=== PATIENT | male | born 1965 | race Caucasian/White ===

== ENCOUNTER 2024-03-23 13:54 | Observation (INO) ==
--- NOTE | 2024-03-23 14:28 | Emergency Department Note ---
Impression & Plan Sepsis, Cellulitis ED Provider Note NAME: NANCY RODRIGUEZ AGE: 58 SEX: M : 1965 ARRIVES VIA: Walk-In INFORMANT: Patient, ED PROVIDER(S): Douglas Houser MD CHIEF COMPLAINT: Fever MEDICAL DECISION MAKING: Patient presents due to concern for fever in the setting of recent scrotal cellulitis. The patient does have some redness there today no evidence of crepitus or mass or fluctuance. IV was established and blood work was obtained along with a blood culture and lactate. IV Ofirmev was ordered in addition to IV fluids. Patient was treated with empiric Zosyn. CT abdomen pelvis performed. Blood work shows a normal white count H&H and platelet count. The patient's kidney function is unremarkable. Patient's blood sugar is 230. LFTs unremarkable procalcitonin is not elevated. Urinalysis shows ketones trace blood but no signs of obvious infection. Bio fire is negative. Chest x-ray negative. CT abdomen pelvis does show possible cellulitis to the left groin. Patient does not have any obvious redness to the left groin. Patient did report that he did have some redness to the right upper extremity where he had a recent peripheral IV. There is some blanching redness there. This could also be a possible site of cellulitic change. Upon assessment the patient looks generally unwell and the blood the patient would benefit from staying in hospital. I did speak the on-call hospitalist Dr. Kang and the patient was admitted to the medicine service. Discussion w/ other healthcare providers: None Prior /Outside records reviewed: None Differential diagnosis: Viral syndrome, otitis, pharyngitis, pneumonia, influenza, meningitis, urinary tract infection, sepsis, bacteremia, as well as other pathologies. Diagnostics, as interpreted by me: ECG: Sinus tachycardia, rate of 107, normal intervals, normal axis no ST elevations. No prior EKGs for comparison. Cardiac monitoring: An order was placed for continuous cardiac monitoring. The monitor shows a rate of 102 with tachycardic and regular rhythm. Patient was placed on pulse oximetry Medical decision rules: None Imaging studies: I informally interpreted the patient's chest x-ray does not show obvious pneumonia or pneumothoraxwith formal report to follow. HPI: Patient presents due to concern for feeling as though he was very hot. Patient did take his temperature and the car was notable to be 102. The patient did take some ibuprofen. The patient does believe that his temperature has improved. The patient has had some left-sided chest tightness. He reports that he had a calcium score of 03 years ago. No reported prior history of heart or lung disease. Non-smoker. Patient denies any exertional symptoms and the patient's chest tightness is left-sided nonradiating. No falls or trauma. The patient did have recent admission and discharge from [facility] for scrotal cellulitis. The patient is currently on Bactrim. Patient denies any leg swelling or calf pain. The patient does not have any pleuritic pain. Patient states that he was discharged yesterday from hospital was feeling quite well and that they were on their way to [place] to visit their daughter. PAST MEDICAL HISTORY: Diabetes, fatty liver PAST SURGICAL HISTORY: Rotator cuff surgery, cholecystectomy SOCIAL HISTORY: Denies alcohol tobacco or drug use. Lives in [place]. HOME MEDICATIONS: See Below ALLERGIES: See Below VITALS: See Below PHYSICAL EXAMINATION: GENERAL: Mildly ill but nontoxic in appearance and in no apparent distress. EYE EXAM: Normal conjunctiva. PERRL, no anisocoria and EOM's grossly intact w/o pain. OROPHARYNX: Moist mucus membranes, grossly normal dentition. NECK: Trachea midline, no stridor. LUNGS: Clear to auscultation. Normal chest wall mechanics. HEART: Tachycardic and regular, no MRG. ABDOMEN: Abdomen soft, non-tender, no masses, no rebound or guarding. BACK: No CVA TTP. SKIN: No rashes and no bruising. : Circumcised, bilateral testes descended, mild redness to the scrotum but no fluctuance or drainage,, no crepitus. No pain to the perineum no fluctuance or drainage. UPPER EXTREMITIES: Blanching erythema to the volar aspect of the proximal right forearm, no fluctuance or drainage. LOWER EXTREMITIES: Grossly normal, no edema. NEURO EXAM: A&O x3, cranial nerves II-XII grossly intact, normal speech, moves all 4 extremities. Past Med/Surg History Problem List (Updated 03/23/24 @ 19:50 by Douglas Houser MD) Cellulitis (Acute) History of cholecystectomy Morbid obesity HTN (hypertension) Septic phlebitis of upper extremities DM type 2 (diabetes mellitus, type 2) Sepsis (Acute) Social History Smoking Status: Never smoker Preferred Language: Japanese Feels Safe at Home: Yes Allergies Allergies Allergy/AdvReac Type Severity Reaction Status Date / Time amoxicillin [From Augmentin] AdvReac Intermediate Vomiting Verified 03/23/24 16:50 clavulanic acid AdvReac Intermediate Vomiting Verified 03/23/24 16:50 [From Augmentin] Home Meds Home Medications Medication Instructions Recorded Confirmed Cinnulane(Cinnamon) 1 dose PO DAILY 03/23/24 03/23/24 alpha lipoic acid 100 mg capsule 0 mg PO DAILY 03/23/24 03/23/24 amlodipine 5 mg tablet 5 mg PO DAILY 03/23/24 03/23/24 garlic 1,000 mg capsule 1,000 mg PO DAILY 03/23/24 03/23/24 insulin aspart U-100 100 unit/mL 10 unit subcut ACHS 03/23/24 03/23/24 (3 mL) subcutaneous pen (Novolog FlexPen U-100 Insulin aspart) insulin glargine 100 unit/mL (3 30 unit subcut QPM 03/23/24 03/23/24 mL) subcutaneous pen (Lantus Solostar U-100 Insulin) inulin-sorbitol 2 gram chewable 2 tab PO TIDM 03/23/24 03/23/24 tablet multivitamin 1 tab PO DAILY 03/23/24 03/23/24 ramipril 10 mg capsule 10 mg PO DAILY 03/23/24 03/23/24 sulfamethoxazole 800 1 tab PO BID 03/23/24 03/23/24 mg-trimethoprim 160 mg tablet Results & Data (ED) Vital Signs Vital Signs - 24 hr 03/23/24 14:23 03/23/24 14:34 03/23/24 14:43 Temperature 37.2 C 37.8 C H Temperature Source Oral Oral Pulse Rate 109 H 105 H Pulse Rate [Apical] 105 H Pulse Rate from SpO2 Sensor Respiratory Rate 20 16 Respiratory Effort / Characteristics Non-Labored Spontaneous Non-Labored Spontaneous Respiratory Depth Normal Normal Respiratory Pattern Blood Pressure 175/95 H Blood Pressure [Right Arm] 159/101 H Blood Pressure Mean 121 Blood Pressure Mean [Right Arm] 120 Blood Pressure Position [Right Arm] Semi-fowlers Pulse Oximetry 94 96 Oxygen Delivery Method Room Air Room Air Oxygen Flow Rate Sepsis Recent Fever Within 48 Hours Yes Sepsis New/Unexplained Change in Mental Status N/A Sepsis Action Taken by Nursing No Action Required Oxygen Flow Rate - Titration Pulse Oximetry Post Tiitration 03/23/24 14:45 03/23/24 14:54 03/23/24 15:15 Temperature Temperature Source Pulse Rate 107 H 106 H 107 H Pulse Rate [Apical] Pulse Rate from SpO2 Sensor 107 H 117 H Respiratory Rate 23 16 Respiratory Effort / Characteristics Respiratory Depth Respiratory Pattern Blood Pressure 134/96 Blood Pressure [Right Arm] Blood Pressure Mean 103 Blood Pressure Mean [Right Arm] Blood Pressure Position [Right Arm] Pulse Oximetry 95 95 95 Oxygen Delivery Method Room Air Room Air Oxygen Flow Rate Sepsis Recent Fever Within 48 Hours Sepsis New/Unexplained Change in Mental Status Sepsis Action Taken by Nursing Oxygen Flow Rate - Titration Pulse Oximetry Post Tiitration 03/23/24 15:32 03/23/24 15:47 03/23/24 15:51 Temperature Temperature Source Pulse Rate Pulse Rate [Apical] 100 H 109 H Pulse Rate from SpO2 Sensor Respiratory Rate 20 14 Respiratory Effort / Characteristics Non-Labored Spontaneous Respiratory Depth Normal Respiratory Pattern Regular Blood Pressure 141/88 H Blood Pressure [Right Arm] 153/93 H 141/88 H Blood Pressure Mean 105 Blood Pressure Mean [Right Arm] 113 105 Blood Pressure Position [Right Arm] Semi-fowlers Pulse Oximetry 95 94 Oxygen Delivery Method Room Air Room Air Oxygen Flow Rate Sepsis Recent Fever Within 48 Hours Sepsis New/Unexplained Change in Mental Status Sepsis Action Taken by Nursing Oxygen Flow Rate - Titration Pulse Oximetry Post Tiitration 03/23/24 15:51 03/23/24 16:00 03/23/24 16:00 Temperature Temperature Source Pulse Rate 107 H Pulse Rate [Apical] Pulse Rate from SpO2 Sensor 107 H Respiratory Rate 13 Respiratory Effort / Characteristics Spontaneous Respiratory Depth Normal Respiratory Pattern Regular Blood Pressure 141/88 H 149/90 H Blood Pressure [Right Arm] Blood Pressure Mean 105 115 Blood Pressure Mean [Right Arm] Blood Pressure Position [Right Arm] Pulse Oximetry 94 Oxygen Delivery Method Room Air Oxygen Flow Rate Sepsis Recent Fever Within 48 Hours Sepsis New/Unexplained Change in Mental Status Sepsis Action Taken by Nursing Oxygen Flow Rate - Titration Pulse Oximetry Post Tiitration 03/23/24 16:15 03/23/24 16:16 03/23/24 16:30 Temperature Temperature Source Pulse Rate 109 H 110 H Pulse Rate [Apical] Pulse Rate from SpO2 Sensor 109 H 109 H Respiratory Rate 21 Respiratory Effort / Characteristics Non-Labored Spontaneous Respiratory Depth Normal Respiratory Pattern Regular Blood Pressure 145/90 H 159/88 H Blood Pressure [Right Arm] Blood Pressure Mean 108 116 Blood Pressure Mean [Right Arm] Blood Pressure Position [Right Arm] Pulse Oximetry 94 94 Oxygen Delivery Method Room Air Room Air Oxygen Flow Rate Sepsis Recent Fever Within 48 Hours Sepsis New/Unexplained Change in Mental Status Sepsis Action Taken by Nursing Oxygen Flow Rate - Titration Pulse Oximetry Post Tiitration 03/23/24 16:42 03/23/24 16:45 03/23/24 16:45 Temperature 37.3 C Temperature Source Oral Pulse Rate 117 H Pulse Rate [Apical] 96 H Pulse Rate from SpO2 Sensor 106 H Respiratory Rate 20 21 Respiratory Effort / Characteristics Non-Labored Respiratory Depth Normal Respiratory Pattern Blood Pressure 154/73 H 154/73 H Blood Pressure [Right Arm] 159/88 H Blood Pressure Mean 100 100 Blood Pressure Mean [Right Arm] 111 Blood Pressure Position [Right Arm] Pulse Oximetry 92 91 Oxygen Delivery Method Room Air Room Air Oxygen Flow Rate Sepsis Recent Fever Within 48 Hours Sepsis New/Unexplained Change in Mental Status Sepsis Action Taken by Nursing Oxygen Flow Rate - Titration Pulse Oximetry Post Tiitration 03/23/24 17:07 03/23/24 17:07 03/23/24 17:08 Temperature Temperature Source Pulse Rate 114 H Pulse Rate [Apical] 109 H Pulse Rate from SpO2 Sensor 112 H Respiratory Rate 23 19 Respiratory Effort / Characteristics Non-Labored Spontaneous Respiratory Depth Normal Respiratory Pattern Regular Blood Pressure 125/77 125/77 Blood Pressure [Right Arm] 125/77 Blood Pressure Mean 81 81 Blood Pressure Mean [Right Arm] 93 Blood Pressure Position [Right Arm] Semi-fowlers Pulse Oximetry 90 91 Oxygen Delivery Method Room Air Oxygen Flow Rate Sepsis Recent Fever Within 48 Hours Sepsis New/Unexplained Change in Mental Status Sepsis Action Taken by Nursing Oxygen Flow Rate - Titration Pulse Oximetry Post Tiitration 03/23/24 17:15 03/23/24 17:45 03/23/24 17:58 Temperature Temperature Source Pulse Rate 106 H 102 H Pulse Rate [Apical] Pulse Rate from SpO2 Sensor 108 H Respiratory Rate 14 30 H Respiratory Effort / Characteristics Respiratory Depth Respiratory Pattern Blood Pressure 152/79 H 123/69 Blood Pressure [Right Arm] Blood Pressure Mean 88 87 Blood Pressure Mean [Right Arm] Blood Pressure Position [Right Arm] Pulse Oximetry 93 89 L Oxygen Delivery Method Room Air Nasal Cannula Oxygen Flow Rate 0 Sepsis Recent Fever Within 48 Hours Sepsis New/Unexplained Change in Mental Status Sepsis Action Taken by Nursing Oxygen Flow Rate - Titration 2 Pulse Oximetry Post Tiitration 95 03/23/24 18:00 03/23/24 18:00 03/23/24 18:01 Temperature Temperature Source Pulse Rate 101 H 102 H Pulse Rate [Apical] Pulse Rate from SpO2 Sensor 101 H Respiratory Rate 23 Respiratory Effort / Characteristics Respiratory Depth Respiratory Pattern Blood Pressure 134/81 134/81 Blood Pressure [Right Arm] Blood Pressure Mean 98 89 Blood Pressure Mean [Right Arm] Blood Pressure Position [Right Arm] Pulse Oximetry 94 Oxygen Delivery Method Nasal Cannula Oxygen Flow Rate 2 Sepsis Recent Fever Within 48 Hours Sepsis New/Unexplained Change in Mental Status Sepsis Action Taken by Nursing Oxygen Flow Rate - Titration Pulse Oximetry Post Tiitration 03/23/24 18:15 03/23/24 18:15 03/23/24 18:15 Temperature Temperature Source Pulse Rate 111 H Pulse Rate [Apical] Pulse Rate from SpO2 Sensor Respiratory Rate 25 H Respiratory Effort / Characteristics Respiratory Depth Respiratory Pattern Blood Pressure 159/92 H 159/92 H Blood Pressure [Right Arm] Blood Pressure Mean 106 106 Blood Pressure Mean [Right Arm] Blood Pressure Position [Right Arm] Pulse Oximetry Oxygen Delivery Method Oxygen Flow Rate Sepsis Recent Fever Within 48 Hours Sepsis New/Unexplained Change in Mental Status Sepsis Action Taken by Nursing Oxygen Flow Rate - Titration Pulse Oximetry Post Tiitration 03/23/24 18:30 03/23/24 18:45 Temperature Temperature Source Pulse Rate 108 H 102 H Pulse Rate [Apical] Pulse Rate from SpO2 Sensor 109 H 102 H Respiratory Rate 15 20 Respiratory Effort / Characteristics Respiratory Depth Respiratory Pattern Blood Pressure 142/94 H 154/88 H Blood Pressure [Right Arm] Blood Pressure Mean 108 110 Blood Pressure Mean [Right Arm] Blood Pressure Position [Right Arm] Pulse Oximetry 92 94 Oxygen Delivery Method Nasal Cannula Nasal Cannula Oxygen Flow Rate 2 2 Sepsis Recent Fever Within 48 Hours Sepsis New/Unexplained Change in Mental Status Sepsis Action Taken by Nursing Oxygen Flow Rate - Titration Pulse Oximetry Post Tiitration Home Medications Current Medication List: was personally reviewed by me Laboratory Data Attestation: I reviewed the patient's lab results. 03/23/24 15:09 03/23/24 15:09 Lab Results 03/23/24 03/23/24 03/23/24 Range/Units 15:09 15:29 16:01 WBC 9.28 (4.8-10.8) K/ul RBC 5.48 (4.70-6.10) M/uL Hgb 16.1 (14.0-18.0) g/dl POC Hgb 16.7 (14.0-18.0) g/dl Hct 47.0 (42.0-52.0) % POC Hct 49 (42-52) % MCV 85.8 (80.0-100.0) fL MCH 29.4 (25.0-34.0) pg MCHC 34.3 (32.0-36.0) g/dL RDW Std Deviation 40.2 (36.4-46.3) fL RDW Coeff of Shaheed 12.9 (11.5-14.5) % Plt Count 212 (130-400) K/uL MPV 11.0 (9.4-12.4) fL Immature Gran % (Auto) 0.5 % Neut % (Auto) 88.4 % Lymph % (Auto) 5.0 % [place] % (Auto) 5.6 % Eos % (Auto) 0.2 % Baso % (Auto) 0.3 % Neut # (Auto) 8.20 H (1.40-6.50) K/uL Lymph # (Auto) 0.46 L (1.20-3.40) K/uL [place] # (Auto) 0.52 (0.11-0.59) K/uL Eos # (Auto) 0.02 (0.00-0.50) K/uL Baso # (Auto) 0.03 (0.00-0.20) K/uL Immature Gran # (Auto) 0.05 (0.01-0.20) K/uL POC Sodium 135 (135-144) mmol/L Sodium 133 L (136-145) mmol/L POC Potassium 4.0 (3.3-5.0) mmol/L Potassium 3.9 (3.5-5.1) mmol/L POC Chloride 98 L (101-112) mmol/L Chloride 97 L (98-107) mmol/L Carbon Dioxide 26 (21-32) mmol/L POC Total CO2 24 (24-31) mmol/L Anion Gap 10 (3-11) POC Anion Gap 17.0 (16-25) mmol/L POC BUN 12 (7-18) mg/dl BUN 13 (6-23) mg/dl Creatinine 0.95 (0.6-1.4) mg/dl POC Creatinine 1.0 (0.6-1.3) mg/dl Est Cr Clr Drug Dosing 126.4 ml/min Est GFR ( Amer) 101.9 ml/min Est GFR (Non-Af Amer) 87.9 ml/min BUN/Creatinine Ratio 13.7 (10-20) Glucose 230 H (70-99(Fasting)) mg/dl POC Glucose (other) 236 H (70-99) mg/dl Lactate 1.8 (0.4-2.0) mmol/L Calcium 9.5 (8.6-10.3) mg/dl POC Ioniz Calcium Miguel Ángel 1.07 L (1.12-1.32) mmol/l Magnesium 1.8 (1.7-2.4) mg/dl Total Bilirubin 0.7 (0.2-1.0) mg/dl Direct Bilirubin 0.2 (0-0.2) mg/dl AST 29 (13-39) U/L ALT 38 (7-52) U/L Alkaline Phosphatase 66 (34-104) U/L Troponin I High Sens 11.3 (0-20) pg/ml Total Protein 7.8 (6.0-8.3) gm/dl Albumin 4.7 (3.4-5.0) gm/dl Procalcitonin 0.22 (0-0.5) ng/ml Urine Color Yellow Urine Appearance Clear (Clear) Urine pH 5.5 (4.5-7.5) Ur Specific [place] 1.016 (1.000-1.030) Urine Protein Negative (Negative) Urine Glucose (UA) 2+ H (Negative) Urine Ketones 2+ H (Negative) Urine Blood Trace H (Negative) Urine Nitrite Negative (Negative) Urine Bilirubin Negative (Negative) Urine Urobilinogen Negative (Negative) Ur Leukocyte Esterase Negative (Negative) Urine WBC (Auto) 0-5 (0-5) /hpf Urine RBC (Auto) 0-2 (0-2) /hpf U Hyaline Cast (Auto) 0-2 (0-2) /lpf U Epithel Cells (Auto) 0-2 (0-2) /hpf Urine Bacteria (Auto) None Seen (None Seen) Adenovirus (PCR) Not Detected (NotDetected) B. pertussis DNA (PCR) Not Detected (NotDetected) B.parapertussis DNA PCR Not Detected (NotDetected) C. pneumoniae DNA (PCR) Not Detected (NotDetected) Coronavirus OC43 (PCR) Not Detected (NotDetected) Coronavirus HKU1 (PCR) Not Detected (NotDetected) Coronavirus 229E (PCR) Not Detected (NotDetected) SARS-CoV-2 (PCR) Not Detected (NotDetected) Coronavirus NL63 (PCR) Not Detected (NotDetected) Human Metapneumovir PCR Not Detected (NotDetected) Influenza Type A (PCR) Not Detected (NotDetected) Influenza Type B (PCR) Not Detected (NotDetected) M. pneumoniae (PCR) Not Detected (NotDetected) Parainfluenza 1 (PCR) Not Detected (NotDetected) Parainfluenza 2 (PCR) Not Detected (NotDetected) Parainfluenza 3 (PCR) Not Detected (NotDetected) Parainfluenza 4 (PCR) Not Detected (NotDetected) RSV (PCR) Not Detected (NotDetected) Entero/Rhino (PCR) Not Detected (NotDetected) Administered Medications Discontinued Medications Sodium Chloride (Nss) 1,000 mls @ 999 mls/hr IV .Q1H1M IZABEL Stop: 03/23/24 16:00 Last Infusion: 03/23/24 16:25 Dose: Infused Documented By: Admin: 03/23/24 15:20 Dose: 999 mls/hr Documented By: BEVERLY Piperacillin Sod/Tazobactam Sod (Zosyn) 4.5 gm in 100 mls @ 200 mls/hr IV NOW ONE Stop: 03/23/24 15:16 Last Infusion: 03/23/24 16:22 Dose: Infused Documented By: Admin: 03/23/24 15:50 Dose: 200 mls/hr Documented By: BEVERLY Acetaminophen (Ofirmev) 1,000 mg in 100 mls @ 400 mls/hr IV NOW STA Stop: 03/23/24 15:03 Last Infusion: 03/23/24 16:45 Dose: Infused Documented By: Admin: 03/23/24 16:21 Dose: 400 mls/hr Documented By: BEVERLY Sodium Chloride (Nss) 500 mls @ 999 mls/hr IV .Q31M ONE Stop: 03/23/24 17:54 Last Admin: 03/23/24 18:22 Dose: 999 mls/hr Documented By: BEVERLY Ioversol (Optiray 320 125ml) 119 ml IV ONCE ONE Stop: 03/23/24 15:44 Last Admin: 03/23/24 15:43 Dose: 119 ml Documented By: ILDA Imaging Data Radiologist's Impression: Chest X-Ray 03/23/24 14:47 XR chest 1V portable CLINICAL HISTORY: Sepsis. COMPARISON STUDY: No previous studies for comparison. FINDINGS: Lung volumes are normal. Lungs are clear. There is no pneumothorax or pleural effusion. Cardiac size is normal. Mediastinal contours are normal. There is no evidence for pulmonary edema. IMPRESSION: No acute cardiopulmonary findings. ACT 112: Negative or not required by law. Electronically signed by: Cristofer Mack M.D. 03/23/2024 3:26 PM Abdomen/Pelvis CT 03/23/24 14:48 CT OF THE ABDOMEN AND PELVIS WITH CONTRAST CLINICAL HISTORY: recent scrotal infection, sepsis COMPARISON STUDY: None. TECHNIQUE: Following IV administration of 119 mL of Optiray, axial images of the abdomen and pelvis were obtained from the lung bases to the proximal femurs. Images were reviewed in the axial, sagittal, and coronal planes. IV contrast was administered without complication. Automated exposure control was utilized for the study. A dose lowering technique was utilized adhering to the principles of ALARA. CT DOSE: 1845.78 mGy.cm FINDINGS: Lung bases are unremarkable. No pneumatosis, free air or portal venous gas is present. There is hepatic steatosis. There is no biliary ductal dilatation status post cholecystectomy. Spleen, adrenal glands, kidneys and pancreas are unremarkable. Is no pancreatic ductal dilatation or peripancreatic infiltration. No hydronephrosis. No urinary calculi. Nephrograms are symmetric. The appendix is normal. The caliber and wall thickness of small and large bowel are normal. There is colonic diverticulosis without evidence for acute diverticulitis. Fat-containing supraumbilical hernia is present. Major vasculature is patent. There is mild left groin stranding. No fluid collection or soft tissue gas is noted. Please note that the entire scrotum was not imaged on this examination. Mildly enlarged left external iliac and inguinal lymph nodes are present. A left external iliac lymph node on image 365 of 497 measures 2.4 x 1.3 cm. An index left inguinal lymph node on image 410 measures 2.5 x 1.1 cm. IMPRESSION: 1. Mild left groin stranding suggestive of cellulitis. No fluid collection or soft tissue gas. Please note that the entire scrotum was not imaged on this exam. 2. Mildly enlarged left external iliac and inguinal lymph nodes which are likely reactive. 3. Colonic diverticulosis. No evidence for acute diverticulitis. 4. Hepatic steatosis. ACT 112: Negative or not required by law. Electronically signed by: Cristofer Mack M.D. 03/23/2024 3:57 PM Discharge Plan Visit Data Chief Complaint: Fever Stated Complaint: FEVER, VERTIGO, FLANK PAIN ED Provider: Douglas Houser Discharge Problem: Sepsis, Cellulitis Forms Stand Alone Forms: [facility] Prescriptions Prescriptions: No Action multivitamin Tablet 1 tab PO DAILY amlodipine 5 mg tablet 5 mg PO DAILY sulfamethoxazole-trimethoprim 800-160 mg tablet 1 tab PO BID Rx Instructions: STARTED 03/22/24 FOR 14 DAYS garlic 1,000 mg Capsule 1,000 mg PO DAILY ramipril 10 mg capsule 10 mg PO DAILY insulin aspart U-100 [Novolog FlexPen U-100 Insulin] 100 unit/mL (3 mL) insulin pen 10 unit SUBCUT ACHS Rx Instructions: TAKES 10 UNITS PLUS SLIDING SCALE AT NEEDED insulin glargine [Lantus Solostar U-100 Insulin] 100 unit/mL (3 mL) insulin pen 30 unit SUBCUT QPM alpha lipoic acid 100 mg Capsule 0 mg PO DAILY Rx Instructions: PT UNSURE OF STRENGTH, UNABLE TO VERIFY inulin-sorbitol 2 gram Tablet,Chewable 2 tab PO TIDM Cinnulane(Cinnamon) 1 dose PO DAILY Referrals Referrals: PCP,NO [Primary Care Provider] - Discharge Problem: Sepsis Qualifiers: Sepsis type: sepsis due to unspecified organism Sepsis acute organ dysfunction status: without acute organ dysfunction Qualified Code(s): A41.9 - Sepsis, unspecified organism Cellulitis Qualifiers: Site of cellulitis: unspecified site Qualified Code(s): L03.90 - Cellulitis, unspecified
[2024-03-23] MEDS: SODIUM CHLORIDE 0.9% 1,000 ML IV SCH ×2 (15:20→21:16)
--- NOTE | 2024-03-23 15:28 | XRay Report ---
XR chest 1V portable CLINICAL HISTORY: Sepsis. COMPARISON STUDY: No previous studies for comparison. FINDINGS: Lung volumes are normal. Lungs are clear. There is no pneumothorax or pleural effusion. Car diac size is normal. Mediastinal contours are normal. There is no evidence for pulmonary edema. IMPRESSION: No acute cardiopulmonary findings. ACT 112: Negative or not required by law. Electronically signed by: Cristofer Mack M.D. 03/23/2024 3:26 PM
--- NOTE | 2024-03-23 15:34 | Electrocardiogram Report ---
Test Reason : Blood Pressure : */* mmHG Vent. Rate : 107 BPM Atrial Rate : 107 BPM P-R Int : 126 ms QRS Dur : 94 ms QT Int : 328 ms P-R-T Axes : 42 57 25 degrees QTcB Int : 437 ms Sinus tachycardia Otherwise normal ECG No previous ECGs available Confirmed by Oral Castellanos ([id number]) on 03/23/2024 3:33:45 PM Referred By: Confirmed By: Oral Castellanos
[2024-03-23 15:42] LABS: iSTAT Hemoglobin 16.7 g/dl (14.0-18.0); iSTAT Ionized Calcium 1.07 mmol/l (1.12-1.32)
[2024-03-23] MEDS: OPTIRAY 320 125ml IV ONE (15:43)
[2024-03-23] MEDS: PIPERACILLIN/TAZOBACTAM 4.5 GM/100 ML BAG IV ONE (15:50)
--- NOTE | 2024-03-23 15:59 | CT Scan Report ---
CT OF THE ABDOMEN AND PELVIS WITH CONTRAST CLINICAL HISTORY: recent scrotal infection, sepsis COMPARISON STUDY: None. TECHNIQUE: Following IV administration of 119 mL of Optiray, axial images of the abdomen and pelvis w ere obtained from the lung bases to the proximal femurs. Images were reviewed in the axial, sagittal, and coronal planes. IV contrast was administered without complication. Automated exposure control w as utilized for the study. A dose lowering technique was utilized adhering to the principles of TANIA Menon. CT DOSE: 1845.78 mGy.cm FINDINGS: Lung bases are unremarkable. No pneumatosis, free air or portal venous gas is present. Ther e is hepatic steatosis. There is no biliary ductal dilatation status post cholecystectomy. Spleen, ad renal glands, kidneys and pancreas are unremarkable. Is no pancreatic ductal dilatation or peripancre atic infiltration. No hydronephrosis. No urinary calculi. Nephrograms are symmetric. The appendix is normal. The caliber and wall thickness of small and large bowel are normal. There is colonic divertic ulosis without evidence for acute diverticulitis. Fat-containing supraumbilical hernia is present. Ma sarah vasculature is patent. There is mild left groin stranding. No fluid collection or soft tissue gas is noted. Please note that the entire scrotum was not imaged on this examination. Mildly enlarged le ft external iliac and inguinal lymph nodes are present. A left external iliac lymph node on image 365 of 497 measures 2.4 x 1.3 cm. An index left inguinal lymph node on image 410 measures 2.5 x 1.1 cm. IMPRESSION: 1. Mild left groin stranding suggestive of cellulitis. No fluid collection or soft tissue gas. Please note that the entire scrotum was not imaged on this exam. 2. Mildly enlarged left external iliac and inguinal lymph nodes which are likely reactive. 3. Colonic diverticulosis. No evidence for acute diverticulitis. 4. Hepatic steatosis. ACT 112: Negative or not required by law. Electronically signed by: Cristofer Mack M.D. 03/23/2024 3:57 PM
[2024-03-23] MEDS: ACETAMINOPHEN 1,000 MG/100 ML VIAL IV STA (16:21)
[2024-03-23 16:38] LABS: Appearance Urine Clear (Clear); Bacteria Urine Automated None Seen (None Seen); Bilirubin Urine Negative (Negative); Blood Urine Trace (Negative); Cast Urine Automated 0-2 /lpf (0-2); Color Urine Yellow; Epithelial Cell Urine Auto 0-2 /hpf (0-2); Glucose Urine UA 2+ (Negative); Ketones Urine 2+ (Negative); Leukocyte Esterase Urine Negative (Negative); Nitrite Urine Negative (Negative); Protein Urine Negative (Negative); RBC Urine Automated 0-2 /hpf (0-2); Specific Gravity Urine 1.016 (1.000-1.030); Urobilinogen Urine Negative (Negative); WBC Urine Automated 0-5 /hpf (0-5); pH Urine 5.5 (4.5-7.5)
[2024-03-23 16:41] LABS: Basophils # (auto) 0.03 K/uL (0.00-0.20); Basophils % (auto) 0.3 %; Eosinophils # (auto) 0.02 K/uL (0.00-0.50); Eosinophils % (auto) 0.2 %; Hemoglobin 16.1 g/dl (14.0-18.0); Immature Granulocytes # (auto) 0.05 K/uL (0.01-0.20); Immature Granulocytes % (auto) 0.5 %; Lymphocytes # (auto) 0.46 K/uL (1.20-3.40); Mean Corpuscular Hemoglobin 29.4 pg (25.0-34.0); Mean Corpuscular Hgb Conc 34.3 g/dL (32.0-36.0); Mean Corpuscular Volume 85.8 fL (80.0-100.0); Monocytes # (auto) 0.52 K/uL (0.11-0.59); Monocytes % (auto) 5.6 %; Neutrophils % (auto) 88.4 %; Platelet Count 212 K/uL (130-400); RDW Coefficient of Variation 12.9 % (11.5-14.5); RDW Standard Deviation 40.2 fL (36.4-46.3); Red Blood Count 5.48 M/uL (4.70-6.10); White Blood Count 9.28 K/ul (4.8-10.8)
[2024-03-23 16:58] LABS: Albumin Level 4.7 gm/dl (3.4-5.0); BUN Creatinine Ratio 13.7 (10-20); Bilirubin Direct 0.2 mg/dl (0-0.2); Bilirubin,Total 0.7 mg/dl (0.2-1.0); Calcium 9.5 mg/dl (8.6-10.3); Creatinine Clr Calc Pharmacy 126.4 ml/min; Est GFR (African American) 101.9 ml/min; Est GFR (Non-African American) 87.9 ml/min; Magnesium 1.8 mg/dl (1.7-2.4); Potassium 3.9 mmol/L (3.5-5.1); Total Protein 7.8 gm/dl (6.0-8.3)
[2024-03-23 17:04] LABS: Troponin I High Sensitivity 11.3 pg/ml (0-20)
[2024-03-23 17:21] LABS: Adenovirus PCR Not Detected (NotDetected); Bordetella parapertussis PCR Not Detected (NotDetected); Bordetella pertussis PCR Not Detected (NotDetected); Chlamydia pneumoniae PCR Not Detected (NotDetected); Coronavirus 229E PCR Not Detected (NotDetected); Coronavirus CoV-2 (COVID19)PCR Not Detected (NotDetected); Coronavirus HKU1 PCR Not Detected (NotDetected); Coronavirus NL63 PCR Not Detected (NotDetected); Coronavirus OC43PCR Not Detected (NotDetected); Human Metapneumovirus PCR Not Detected (NotDetected); Influenza A PCR Not Detected (NotDetected); Influenza B PCR Not Detected (NotDetected); Mycoplasma pneumoniae PCR Not Detected (NotDetected); Parainfluenza Virus 1 PCR Not Detected (NotDetected); Parainfluenza Virus 2 PCR Not Detected (NotDetected); Parainfluenza Virus 3 PCR Not Detected (NotDetected); Parainfluenza Virus 4 PCR Not Detected (NotDetected); Respiratory Syncytial VirusPCR Not Detected (NotDetected); Rhinovirus/Enterovirus PCR Not Detected (NotDetected)
[2024-03-23] MEDS: SODIUM CHLORIDE 0.9% 500 ML IV ONE (18:22)
[2024-03-23] MEDS ORDERED: VANCOMYCIN CONSULT ACTIVE PRN (18:35)
[2024-03-23] MEDS ORDERED: VANCOMYCIN HCL 1,500 MG in SODIUM CHLORIDE 0.9% 250 ML IV SCH (18:45)
--- NOTE | 2024-03-23 19:00 | History & Physical Report ---
Date of Service March 23, 2024 Assessment & Plan (1) Sepsis: (2) Septic phlebitis of upper extremities: (3) DM type 2 (diabetes mellitus, type 2): (4) HTN (hypertension): (5) Morbid obesity: (6) History of cholecystectomy: Plan 58-year-old male with past medical history significant for diabetes mellitus, type II, hypertension, who was recently admitted for scrotal cellulitis, currently on Bactrim, presents to the hospital with fever, severe chills, # Sepsis most likely secondary to right upper extremity septic phlebitis, after peripheral IV placement , recent admission for scrotal cellulitis Blood cultures obtained IV antibiotics initiated, will start IV vancomycin Doppler of right upper extremity to rule out phlebitis, if no improvement will consult vascular surgery Infectious disease consult IV fluids, lactic acid # Scrotal cellulitis, CT abdomen pelvis does not show severe inflammation, on the physical exam no significant inflammation continue Bactrim , consider urological examination # Diabetes mellitus type 2 Continue home insulins, he is on Lantus and NovoLog Accu-Cheks AC nightly Insulin sliding scale # Hypertension Blood pressure is elevated, continue ramipril and amlodipine Monitor blood pressure # Morbid obesity Weight loss, patient was not able to tolerate Ozempic # DVT prophylaxis Lovenox 40 mg subcu daily History of Present Illness Chief Complaint: fever, severe chills Primary Care Provider: NO PCP Six 58-year-old male with past medical history significant for diabetes mellitus type 2, morbid obesity, hypertension, who was recently treated in [facility] in [facility] for scrotal cellulitis, no procedure done, discharged on Bactrim , was feeling well yesterday, this morning he had some chills, but decided to drive to [place] to visit his daughter. On the way to [place] patient started having fever chills, in the car his temp was up to 102, he took ibuprofen, he took his Bactrim yesterday and this morning. He decided to stop by in the emergency room for further evaluation. She is scrotal cellulitis is doing better, he does have a right upper extremity erythema and induration probably from peripheral IV inserted in the hospital. Patient was started on IV Zosyn, denies cough or chest pain, no shortness of breath, no abdominal pain, no nausea no vomiting, no diarrhea , no significant scrotal pain, no legs pain. Surgical history significant for cholecystectomy. Allergies Allergy/AdvReac Type Severity Reaction Status Date / Time amoxicillin [From Augmentin] AdvReac Intermediate Vomiting Verified 03/23/24 16:50 clavulanic acid AdvReac Intermediate Vomiting Verified 03/23/24 16:50 [From Augmentin] Home Medications Medication Instructions Recorded Confirmed Type Cinnulane(Cinnamon) 1 dose PO DAILY 03/23/24 03/23/24 History alpha lipoic acid 100 mg capsule 0 mg PO DAILY 03/23/24 03/23/24 History amlodipine 5 mg tablet 5 mg PO DAILY 03/23/24 03/23/24 History garlic 1,000 mg capsule 1,000 mg PO DAILY 03/23/24 03/23/24 History insulin aspart U-100 100 unit/mL 10 unit subcut ACHS 03/23/24 03/23/24 History (3 mL) subcutaneous pen (Novolog FlexPen U-100 Insulin aspart) insulin glargine 100 unit/mL (3 30 unit subcut QPM 03/23/24 03/23/24 History mL) subcutaneous pen (Lantus Solostar U-100 Insulin) inulin-sorbitol 2 gram chewable 2 tab PO TIDM 03/23/24 03/23/24 History tablet multivitamin 1 tab PO DAILY 03/23/24 03/23/24 History ramipril 10 mg capsule 10 mg PO DAILY 03/23/24 03/23/24 History sulfamethoxazole 800 1 tab PO BID 03/23/24 03/23/24 History mg-trimethoprim 160 mg tablet Past Med/Surg History Problem List (Updated 03/23/24 @ 18:58 by Marta Rodriges MD) History of cholecystectomy Morbid obesity HTN (hypertension) Septic phlebitis of upper extremities DM type 2 (diabetes mellitus, type 2) Sepsis Social History Smoking Status: Never smoker Preferred Language: Lao Feels Safe at Home: Yes Review of Systems Review of Systems: All systems reviewed & are unremarkable except as noted in Subjective Physical Exam Physical Exam: Head atraumatic normocephalic neck supple, no JVD chest clear to auscultation bilaterally heart S1-S2 regular, no murmurs gallops or rubs appreciated Abdomen soft, nontender, nondistended, bowel sounds present extremities right upper extremity antecubital fossa erythema present, induration present Lower extremities no edema, pulses present Neurologically alert awake oriented x 3, no focal neurological deficit present Results & Data Results & Data Vital Signs (Past 12 Hours) Vital Signs Temp Pulse Pulse Resp BP BP Pulse Ox 03/23/24 18:01 102 H 03/23/24 18:00 101 H 23 134/81 94 03/23/24 17:58 89 L 03/23/24 17:45 102 H 30 H 123/69 03/23/24 17:15 106 H 14 152/79 H 93 03/23/24 17:08 109 H 19 125/77 91 03/23/24 17:07 114 H 23 125/77 90 03/23/24 17:07 125/77 03/23/24 16:45 154/73 H 03/23/24 16:45 117 H 21 154/73 H 91 03/23/24 16:42 37.3 C 96 H 20 159/88 H 92 03/23/24 16:30 110 H 159/88 H 94 03/23/24 16:16 109 H 21 145/90 H 94 03/23/24 16:00 107 H 13 149/90 H 94 03/23/24 15:51 141/88 H 03/23/24 15:51 141/88 H 03/23/24 15:47 109 H 14 141/88 H 94 03/23/24 15:32 100 H 20 153/93 H 95 03/23/24 15:15 107 H 134/96 95 03/23/24 14:54 106 H 16 95 03/23/24 14:45 107 H 23 95 03/23/24 14:43 105 H 03/23/24 14:34 37.8 C H 105 H 16 159/101 H 96 03/23/24 14:23 37.2 C 109 H 20 175/95 H 94 O2 Del Method O2 Flow Rate 03/23/24 18:01 03/23/24 18:00 Nasal Cannula 2 03/23/24 17:58 Room Air, Nasal Cannula 0 03/23/24 17:45 03/23/24 17:15 03/23/24 17:08 Room Air 03/23/24 17:07 03/23/24 17:07 03/23/24 16:45 03/23/24 16:45 Room Air 03/23/24 16:42 Room Air 03/23/24 16:30 Room Air 03/23/24 16:16 Room Air 03/23/24 16:00 Room Air 03/23/24 15:51 03/23/24 15:51 03/23/24 15:47 Room Air 03/23/24 15:32 Room Air 03/23/24 15:15 Room Air 03/23/24 14:54 Room Air 03/23/24 14:45 03/23/24 14:43 03/23/24 14:34 Room Air 03/23/24 14:23 Room Air Laboratory Results Abnormal lab results 03/23/24 03/23/24 03/23/24 Range/Units 15:09 15:29 16:01 Neut # (Auto) 8.20 H (1.40-6.50) K/uL Lymph # (Auto) 0.46 L (1.20-3.40) K/uL Sodium 133 L (136-145) mmol/L POC Chloride 98 L (101-112) mmol/L Chloride 97 L (98-107) mmol/L Glucose 230 H (70-99(Fasting)) mg/dl POC Glucose (other) 236 H (70-99) mg/dl POC Ioniz Calcium Miguel Ángel 1.07 L (1.12-1.32) mmol/l Urine Glucose (UA) 2+ H (Negative) Urine Ketones 2+ H (Negative) Urine Blood Trace H (Negative) Diagnostic Findings Chest X-Ray 03/23/24 14:47 XR chest 1V portable CLINICAL HISTORY: Sepsis. COMPARISON STUDY: No previous studies for comparison. FINDINGS: Lung volumes are normal. Lungs are clear. There is no pneumothorax or pleural effusion. Cardiac size is normal. Mediastinal contours are normal. There is no evidence for pulmonary edema. IMPRESSION: No acute cardiopulmonary findings. ACT 112: Negative or not required by law. Electronically signed by: Cristofer Mack M.D. 03/23/2024 3:26 PM Abdomen/Pelvis CT 03/23/24 14:48 CT OF THE ABDOMEN AND PELVIS WITH CONTRAST CLINICAL HISTORY: recent scrotal infection, sepsis COMPARISON STUDY: None. TECHNIQUE: Following IV administration of 119 mL of Optiray, axial images of the abdomen and pelvis were obtained from the lung bases to the proximal femurs. Images were reviewed in the axial, sagittal, and coronal planes. IV contrast was administered without complication. Automated exposure control was utilized for the study. A dose lowering technique was utilized adhering to the principles of ALARA. CT DOSE: 1845.78 mGy.cm FINDINGS: Lung bases are unremarkable. No pneumatosis, free air or portal venous gas is present. There is hepatic steatosis. There is no biliary ductal dilatation status post cholecystectomy. Spleen, adrenal glands, kidneys and pancreas are unremarkable. Is no pancreatic ductal dilatation or peripancreatic infiltration. No hydronephrosis. No urinary calculi. Nephrograms are symmetric. The appendix is normal. The caliber and wall thickness of small and large bowel are normal. There is colonic diverticulosis without evidence for acute diverticulitis. Fat-containing supraumbilical hernia is present. Major vasculature is patent. There is mild left groin stranding. No fluid collection or soft tissue gas is noted. Please note that the entire scrotum was not imaged on this examination. Mildly enlarged left external iliac and inguinal lymph nodes are present. A left external iliac lymph node on image 365 of 497 measures 2.4 x 1.3 cm. An index left inguinal lymph node on image 410 measures 2.5 x 1.1 cm. IMPRESSION: 1. Mild left groin stranding suggestive of cellulitis. No fluid collection or soft tissue gas. Please note that the entire scrotum was not imaged on this exam. 2. Mildly enlarged left external iliac and inguinal lymph nodes which are likely reactive. 3. Colonic diverticulosis. No evidence for acute diverticulitis. 4. Hepatic steatosis. ACT 112: Negative or not required by law. Electronically signed by: Cristofer Mack M.D. 03/23/2024 3:57 PM Code Status & VTE Plan Code Status full PG Care Time/CCT Total # of Minutes Spent Total Time Spent with Patient: Total time spent is greater than 50% in coordination of care (as documented) at patient's floor/unit and/or counseling patient: Coding Level of Care Code 88476 INT INP/OBS CARE 3/75MIN Diagnoses Sepsis A41.9 Septic phlebitis of upper extremities I80.8 DM type 2 (diabetes mellitus, type 2) E11.9 HTN (hypertension) I10 Morbid obesity E66.01 History of cholecystectomy Z90.49
[2024-03-23] MEDS ORDERED: GLUCAGON FOR INJ 1 MG VIAL IM PRN (19:30)
[2024-03-23] MEDS ORDERED: GLUCOSE 40% GEL 15 GM TUBE PO PRN ×2 (19:30→20:54)
[2024-03-23] MEDS ORDERED: GLUCOSE 10 TAB/TUBE PO PRN ×2 (19:30→20:54)
[2024-03-23] MEDS ORDERED: CARBOHYDRATES FOR HYPOGLYCEMIA PO PRN ×2 (19:30→20:54)
[2024-03-23] MEDS ORDERED: DEXTROSE 50% 50 ML SYRINGE IV PRN ×2 (19:30→20:54)
[2024-03-23] MEDS ORDERED: ALUMINUM/MAGNESIUM SUSP 30 ML UDC PO PRN (20:54)
[2024-03-23] MEDS ORDERED: POLYETHYLENE (MIRALAX) 17 GM PACK PO PRN (20:54)
[2024-03-23] MEDS ORDERED: GLUCAGON FOR INJ 1 MG VIAL SQ PRN (20:54)
[2024-03-23] MEDS: ENOXAPARIN INJ 40 MG/0.4 ML SYR SQ ONE (20:56)
[2024-03-23] MEDS ORDERED: INSULIN ASPART PER UNIT CHARGE SC SCH (21:00)
[2024-03-23] MEDS ORDERED: SULFAMETHOXAZOLE/TRIMETHOPRIM DS 800/160MG TAB PO SCH (21:00)
[2024-03-23] MEDS: DAPTOmycin 625 MG in SYRINGE 0 ML IV SCH (21:16)
[2024-03-23] MEDS: LANTUS PER UNIT CHARGE SQ SCH (21:37)
[2024-03-23] MEDS: INSULIN ASPART PER UNIT CHARGE SC SCH (21:37)
[2024-03-23] MEDS: ACETAMINOPHEN 325 MG TAB PO PRN (21:41)
[2024-03-24] MEDS: levoFLOXacin/D5W 500 MG/100 ML BAG IV SCH (01:25)
--- NOTE | 2024-03-24 02:24 | Ultrasound Report ---
Exam(s): US VENOUS RIGHT UPPER EXTREMITY EXAM: US Duplex Right Upper Extremity Veins CLINICAL HISTORY: Reason for exam: septic phlebitis. TECHNIQUE: Real-time duplex ultrasound scan of the right upper extremity veins integrating B-mode two-dimensional vascular structure, Doppler spectral analysis, color flow Doppler imaging and compression. COMPARISON: No relevant prior studies available. FINDINGS: Deep veins: Acute DVT involving 1 of 2 paired brachial veins. No DVT in the internal jugular, subclavian, axillary, radial, or ulnar veins. Superficial veins: Superficial thrombophlebitis of the basilic vein. Cephalic vein appears to. Soft tissues: No acute findings. IMPRESSION: 1. Acute DVT involving 1 of 2 paired brachial veins. 2. Superficial thrombophlebitis of the basilic vein. Communications: Verify Receipt Electronically signed by: Madeleine Orlando M.D. 03/24/24 02:23 AM
[2024-03-24] MEDS: ONDANSETRON INJ 2 MG/ML 2 ML VIAL IV PRN (02:31)
[2024-03-24] MEDS: Heparin IV Adult Wt-Based Standard *NO* INITIAL Bolus Protocol IV STA (04:00)
[2024-03-24 04:10] LABS: Basophils # (auto) 0.03 K/uL (0.00-0.20); Basophils % (auto) 0.4 %; Eosinophils # (auto) 0.02 K/uL (0.00-0.50); Eosinophils % (auto) 0.3 %; Hematocrit (blood only) 44.6 % (42.0-52.0); Hemoglobin 15.1 g/dl (14.0-18.0); Immature Granulocytes # (auto) 0.03 K/uL (0.01-0.20); Immature Granulocytes % (auto) 0.4 %; Lymphocytes # (auto) 0.46 K/uL (1.20-3.40); Lymphocytes % (auto) 6.1 %; Mean Corpuscular Hemoglobin 29.1 pg (25.0-34.0); Mean Corpuscular Hgb Conc 33.9 g/dL (32.0-36.0); Mean Corpuscular Volume 85.9 fL (80.0-100.0); Mean Platelet Volume 10.7 fL (9.4-12.4); Monocytes % (auto) 10.5 %; Neutrophils # (auto) 6.26 K/uL (1.40-6.50); Neutrophils % (auto) 82.3 %; Platelet Count 186 K/uL (130-400); RDW Coefficient of Variation 12.8 % (11.5-14.5); RDW Standard Deviation 39.9 fL (36.4-46.3); Red Blood Count 5.19 M/uL (4.70-6.10)
[2024-03-24 04:17] LABS: BUN Creatinine Ratio 9.5 (10-20); Calcium 8.5 mg/dl (8.6-10.3); Creatinine Clr Calc Pharmacy 115.5 ml/min; Est GFR (African American) 90.3 ml/min; Est GFR (Non-African American) 77.9 ml/min; Potassium 3.9 mmol/L (3.5-5.1)
[2024-03-24 04:27] LABS: INR 1.1 (0.9-1.1); Partial Thromboplastin Ratio 1.1; Partial Thromboplastin Time 30 Seconds (21-31); Prothrombin Time 11.7 Seconds (9.0-12.0)
[2024-03-24] MEDS: HEPARIN SODIUM/DEXTROSE 25,000 UNITS/500 ML BAG IV SCH (05:08)
[2024-03-24] MEDS: ENALAPRIL MALEATE 10 MG TAB PO SCH (07:37)
[2024-03-24] MEDS: amLODIPine BESYLATE 5 MG TAB PO SCH (07:37)
[2024-03-24 07:42] LABS: Estimated Average Glucose 206 mg/dl; Hemoglobin A1C 8.8 % (4.5-5.6)
[2024-03-24 07:56] LABS: ANTI-Xa, UFH(UnfractionatedHep 0.31 IU/ml (0.3-0.7)
[2024-03-24] MEDS ORDERED: ENOXAPARIN INJ 40 MG/0.4 ML SYR SQ SCH (09:00)
[2024-03-24] MEDS ORDERED: NON-FORMULARY MEDICATION (Alpha Lipoic Acid 100 mg Capsule) PO SCH (09:00)
--- NOTE | 2024-03-24 09:16 | Ultrasound Report ---
US venous doppler LE BI CLINICAL HISTORY: r/o DVT TECHNIQUE: Bilateral lower extremity real-time compression venous ultrasound with Color Doppler imagi ng. Utilizing real-time ultrasonic imaging multiple real time high-resolution ultrasonic images with compression and noncompression maneuvers of the deep venous system in addition to color doppler imagi ng were performed from the common femoral vein through the proximal calf veins. COMPARISON: None available at the time of this dictation. FINDINGS/IMPRESSION: Currently there is normal compressibility of the deep venous system from the common femoral vein thro ugh the proximal calf veins. No superficial venous thrombosis is identified. ACT 112: Negative or not required by law. Electronically signed by: Joe Rodriguez M.D. 03/24/2024 9:14 AM
[2024-03-24] MEDS ORDERED: PHARMACY GLYCEMIC MGMT CONSULT PRN (11:21)
[2024-03-24] MEDS: cefTRIAXone SODIUM 2,000 MG/50 ML BAG IV SCH (12:21)
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
--- NOTE | 2024-03-24 14:10 | Pharmacy Report ---
Pharmacy Glycemic Short Note 2 - Date of Service March 24, 2024 - Glycemic Short BSG Results (Last 24 hours): 03/23/24 03/23/24 03/23/24 15:09 15:29 20:54 Glucose 230 H POC Glucose 224 H POC Glucose (other) 236 H 03/24/24 03/24/24 03/24/24 03:34 07:42 11:28 Glucose 222 H POC Glucose 234 H 198 H POC Glucose (other) OUTPATIENT ANTIDIABETIC REGIMEN: * Lantus 30 units SQ QPM * Novolog 10 units SQ TIDM + SS * HbA1c 8.8% (03/24/24) ASSESSMENT: * Wallace is a 58 YOM admitted with cellulitis with a history of type 2 diabetes mellitus. Pharmacy has been consulted for glycemic management while inpatient. * Fasting BSG this AM elevated, received significantly less bolus insulin than home, will hold off adjusting today and re-evaluate tomorrow. * Novolog tightened, he is receiving daptomycin/ceftriaxone as well is on a heparin drip mixed in dextrose. PLAN FOR INPATIENT GLYCEMIC CONTROL: * Hold outpatient oral diabetes medications * Basal insulin * Lantus 30 units SQ HS * Bolus insulin * NovoLog per scale ACHS or Q6hrs while NPO * Goal Range: Low 110 mg/dL - High 140 mg/dL * Correction Factor: 20 mg/dL/unit * Nutritional / Prandial insulin per carb ratio of 1 unit per 7 grams CHO consumed
--- NOTE | 2024-03-24 14:40 | Hospitalist Progress Note ---
Date of Service March 24, 2024 Assessment & Plan (1) Sepsis: (2) Septic phlebitis of upper extremities: (3) DM type 2 (diabetes mellitus, type 2): (4) HTN (hypertension): (5) Morbid obesity: (6) History of cholecystectomy: Plan 58-year-old male with past medical history significant for diabetes mellitus, type II, hypertension, who was recently admitted for scrotal cellulitis, currently on Bactrim, presents to the hospital with fever, severe chills, # Sepsis most likely secondary to right upper extremity septic phlebitis, after peripheral IV placement , recent admission for scrotal cellulitis Blood cultures obtained, pending IV antibiotics initiated Infectious disease consulted. Recommends IV daptomycin and ceftriaxone Upon discharge, and if blood cultures negative, can be switched to p.o. linezolid and cefpodoxime till 04/05 # Scrotal cellulitis, CT abdomen pelvis does not show severe inflammation, on the physical exam no significant inflammation Started on IV daptomycin and ceftriaxone to be switched over to p.o. linezolid and cefpodoxime per ID recommendations Acute DVT of upper extremity related to recent catheter Catheter has been removed Acute DVT involving brachial veins Superficial thrombophlebitis seen as well Treat with warm compress, right upper extremity elevation, pain management for superficial thrombophlebitis Currently on heparin drip No DVT in lower extremities Considering discontinuation of anticoagulation # Diabetes mellitus type 2 Continue home insulins, he is on Lantus and NovoLog Accu-Cheks AC nightly Insulin sliding scale # Hypertension Blood pressure is elevated, continue ramipril and amlodipine Monitor blood pressure # Morbid obesity Weight loss, patient was not able to tolerate Ozempic # DVT prophylaxis Currently on heparin drip Admission and Anticipated Discharge Date Admission Date: March 23, 2024 Subjective Patient says he feels better overall. Not having fevers or chills anymore. He his right forearm was swollen and red, improved now. No more redness. Very minimal swelling noted. Review of Systems Review of Systems: All systems reviewed & are unremarkable except as noted in Subjective Physical Exam Physical Exam: General: Awake, conversant. Morbidly obese Heart: S1, S2/regular rate and rhythm, no murmur rubs or gallops Lungs: Clear to auscultation bilaterally. Normal effort Abdomen: Soft/nontender/nondistended. No hepatosplenomegaly Extremities: No clubbing/cyanosis. No edema. Right forearm swelling and redness have improved. No scrotal edema noted. Mild redness Behavior: Appropriate, cooperative Results & Data Results & Data Vital Signs (Past 12 Hours) Vital Signs Temp Pulse Pulse Resp BP Pulse Ox O2 Del Method 03/24/24 14:06 37.2 C 88 16 125/77 92 Room Air 03/24/24 13:26 37.2 C 95 H 22 157/88 H 93 Room Air 03/24/24 08:42 37.0 C 94 H 18 110/66 93 Room Air 03/24/24 07:15 Room Air Laboratory Results Abnormal lab results 03/23/24 03/23/24 03/23/24 Range/Units 15:09 15:29 16:01 Neut # (Auto) 8.20 H (1.40-6.50) K/uL Lymph # (Auto) 0.46 L (1.20-3.40) K/uL [place] # (Auto) (0.11-0.59) K/uL Sodium 133 L (136-145) mmol/L POC Chloride 98 L (101-112) mmol/L Chloride 97 L (98-107) mmol/L BUN/Creatinine Ratio (10-20) Glucose 230 H (70-99(Fasting)) mg/dl POC Glucose (70-99) mg/dl POC Glucose (other) 236 H (70-99) mg/dl Hemoglobin A1c (4.5-5.6) % Calcium (8.6-10.3) mg/dl POC Ioniz Calcium Miguel [place]ngel 1.07 L (1.12-1.32) mmol/l Urine Glucose (UA) 2+ H (Negative) Urine Ketones 2+ H (Negative) Urine Blood Trace H (Negative) 03/23/24 03/24/24 03/24/24 Range/Units 20:54 03:34 07:42 Neut # (Auto) (1.40-6.50) K/uL Lymph # (Auto) 0.46 L (1.20-3.40) K/uL [place] # (Auto) 0.80 H (0.11-0.59) K/uL Sodium 133 L (136-145) mmol/L POC Chloride (101-112) mmol/L Chloride (98-107) mmol/L BUN/Creatinine Ratio 9.5 L (10-20) Glucose 222 H (70-99(Fasting)) mg/dl POC Glucose 224 H 234 H (70-99) mg/dl POC Glucose (other) (70-99) mg/dl Hemoglobin A1c 8.8 H (4.5-5.6) % Calcium 8.5 L (8.6-10.3) mg/dl POC Ioniz Calcium Miguel [place]ngel (1.12-1.32) mmol/l Urine Glucose (UA) (Negative) Urine Ketones (Negative) Urine Blood (Negative) 03/24/24 Range/Units 11:28 Neut # (Auto) (1.40-6.50) K/uL Lymph # (Auto) (1.20-3.40) K/uL [place] # (Auto) (0.11-0.59) K/uL Sodium (136-145) mmol/L POC Chloride (101-112) mmol/L Chloride (98-107) mmol/L BUN/Creatinine Ratio (10-20) Glucose (70-99(Fasting)) mg/dl POC Glucose 198 H (70-99) mg/dl POC Glucose (other) (70-99) mg/dl Hemoglobin A1c (4.5-5.6) % Calcium (8.6-10.3) mg/dl POC Ioniz Calcium [place] (1.12-1.32) mmol/l Urine Glucose (UA) (Negative) Urine Ketones (Negative) Urine Blood (Negative) Diagnostic Findings Chest X-Ray 03/23/24 14:47 XR chest 1V portable CLINICAL HISTORY: Sepsis. COMPARISON STUDY: No previous studies for comparison. FINDINGS: Lung volumes are normal. Lungs are clear. There is no pneumothorax or pleural effusion. Cardiac size is normal. Mediastinal contours are normal. There is no evidence for pulmonary edema. IMPRESSION: No acute cardiopulmonary findings. ACT 112: Negative or not required by law. Electronically signed by: Cristofer Mack M.D. 03/23/2024 3:26 PM Abdomen/Pelvis CT 03/23/24 14:48 CT OF THE ABDOMEN AND PELVIS WITH CONTRAST CLINICAL HISTORY: recent scrotal infection, sepsis COMPARISON STUDY: None. TECHNIQUE: Following IV administration of 119 mL of Optiray, axial images of the abdomen and pelvis were obtained from the lung bases to the proximal femurs. Images were reviewed in the axial, sagittal, and coronal planes. IV contrast was administered without complication. Automated exposure control was utilized for the study. A dose lowering technique was utilized adhering to the principles of ALARA. CT DOSE: 1845.78 mGy.cm FINDINGS: Lung bases are unremarkable. No pneumatosis, free air or portal venous gas is present. There is hepatic steatosis. There is no biliary ductal dilatation status post cholecystectomy. Spleen, adrenal glands, kidneys and pancreas are unremarkable. Is no pancreatic ductal dilatation or peripancreatic infiltration. No hydronephrosis. No urinary calculi. Nephrograms are symmetric. The appendix is normal. The caliber and wall thickness of small and large bowel are normal. There is colonic diverticulosis without evidence for acute diverticulitis. Fat-containing supraumbilical hernia is present. Major vasculature is patent. There is mild left groin stranding. No fluid collection or soft tissue gas is noted. Please note that the entire scrotum was not imaged on this examination. Mildly enlarged left external iliac and inguinal lymph nodes are present. A left external iliac lymph node on image 365 of 497 measures 2.4 x 1.3 cm. An index left inguinal lymph node on image 410 measures 2.5 x 1.1 cm. IMPRESSION: 1. Mild left groin stranding suggestive of cellulitis. No fluid collection or soft tissue gas. Please note that the entire scrotum was not imaged on this exam. 2. Mildly enlarged left external iliac and inguinal lymph nodes which are likely reactive. 3. Colonic diverticulosis. No evidence for acute diverticulitis. 4. Hepatic steatosis. ACT 112: Negative or not required by law. Electronically signed by: Cristofer Mack M.D. 03/23/2024 3:57 PM Venous Doppler Study 03/24/24 00:00 CR Exam(s): US VENOUS RIGHT UPPER EXTREMITY EXAM: US Duplex Right Upper Extremity Veins CLINICAL HISTORY: Reason for exam: septic phlebitis. TECHNIQUE: Real-time duplex ultrasound scan of the right upper extremity veins integrating B-mode two-dimensional vascular structure, Doppler spectral analysis, color flow Doppler imaging and compression. COMPARISON: No relevant prior studies available. FINDINGS: Deep veins: Acute DVT involving 1 of 2 paired brachial veins. No DVT in the internal jugular, subclavian, axillary, radial, or ulnar veins. Superficial veins: Superficial thrombophlebitis of the basilic vein. Cephalic vein appears to. Soft tissues: No acute findings. IMPRESSION: 1. Acute DVT involving 1 of 2 paired brachial veins. 2. Superficial thrombophlebitis of the basilic vein. Communications: Verify Receipt Electronically signed by: Madeleine Orlando M.D. 03/24/24 02:23 AM Venous Doppler Study 03/24/24 08:09 US venous doppler LE BI CLINICAL HISTORY: r/o DVT TECHNIQUE: Bilateral lower extremity real-time compression venous ultrasound with Color Doppler imaging. Utilizing real-time ultrasonic imaging multiple real time high-resolution ultrasonic images with compression and noncompression maneuvers of the deep venous system in addition to color doppler imaging were performed from the common femoral vein through the proximal calf veins. COMPARISON: None available at the time of this dictation. FINDINGS/IMPRESSION: Currently there is normal compressibility of the deep venous system from the common femoral vein through the proximal calf veins. No superficial venous thrombosis is identified. ACT 112: Negative or not required by law. Electronically signed by: Joe Rodriguez M.D. 03/24/2024 9:14 AM PG Care Time/CCT Total # of Minutes Spent Total Time Spent with Patient: Total time spent is greater than 50% in coordination of care (as documented) at patient's floor/unit and/or counseling patient: Coding Level of Care Code 58791 SUB INP/OBS CARE 2/35MIN Diagnoses Sepsis A41.9 Sepsis acute organ dysfunction status: without acute organ dysfunction Sepsis type: sepsis due to unspecified organism Septic phlebitis of upper extremities I80.8 DM type 2 (diabetes mellitus, type 2) E11.9 HTN (hypertension) I10 Morbid obesity E66.01 History of cholecystectomy Z90.49 (1) Sepsis Sepsis acute organ dysfunction status: without acute organ dysfunction Sepsis type: sepsis due to unspecified organism Qualified Code(s): A41.9 - Sepsis, unspecified organism
[2024-03-24] MEDS: [UNRECOGNIZED DRUG - REMARK] ONE (21:13)
[2024-03-24] MEDS: ENOXAPARIN 150 MG/ML SYR SQ SCH (21:14)
[2024-03-25 07:49] LABS: Hemoglobin 14.6 g/dl (14.0-18.0); Mean Corpuscular Hgb Conc 33.2 g/dL (32.0-36.0); Mean Corpuscular Volume 87.3 fL (80.0-100.0); Mean Platelet Volume 10.6 fL (9.4-12.4); Platelet Count 200 K/uL (130-400); RDW Coefficient of Variation 13.1 % (11.5-14.5); RDW Standard Deviation 41.9 fL (36.4-46.3); Red Blood Count 5.04 M/uL (4.70-6.10); White Blood Count 7.48 K/ul (4.8-10.8)
[2024-03-25 08:08] LABS: BUN Creatinine Ratio 15.2 (10-20); Calcium 8.7 mg/dl (8.6-10.3); Creatinine Clr Calc Pharmacy 131.8 ml/min; Est GFR (African American) 105.9 ml/min; Est GFR (Non-African American) 91.4 ml/min; Potassium 4.1 mmol/L (3.5-5.1)
[2024-03-25 08:14] LABS: ANTI-Xa, UFH(UnfractionatedHep 0.48 IU/ml (0.3-0.7)
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
--- NOTE | 2024-03-25 14:08 | Pharmacy Report ---
Pharmacy Glycemic Short Note 2 - Date of Service March 25, 2024 - Glycemic Short BSG Results (Last 24 hours): 03/24/24 03/24/24 03/25/24 16:31 20:34 07:26 Glucose 206 H POC Glucose 190 H 187 H 03/25/24 03/25/24 07:48 11:35 Glucose POC Glucose 215 H 212 H OUTPATIENT ANTIDIABETIC REGIMEN: * Lantus 30 units SQ QPM * Novolog 10 units SQ TIDM + SS * HbA1c 8.8% (03/24/24) ASSESSMENT: 03/25 * Patient received total of 63 units of insulin yesterday of which 30 units were basal insulin * Fasting BSG elevated >200 mg/dL - will titrate up basal ~16% this evening * BSGs yesterday above goal range throughout the day, will tighten CR 03/24 * Wallace is a 58 YOM admitted with cellulitis with a history of type 2 diabetes mellitus. Pharmacy has been consulted for glycemic management while inpatient. * Fasting BSG this AM elevated, received significantly less bolus insulin than home, will hold off adjusting today and re-evaluate tomorrow. * Novolog tightened, he is receiving daptomycin/ceftriaxone as well is on a heparin drip mixed in dextrose. PLAN FOR INPATIENT GLYCEMIC CONTROL: * Hold outpatient oral diabetes medications * Basal insulin * Lantus 35 units SQ HS * Bolus insulin * NovoLog per scale ACHS or Q6hrs while NPO * Goal Range: Low 110 mg/dL - High 140 mg/dL * Correction Factor: 15 mg/dL/unit * Nutritional / Prandial insulin per carb ratio of 1 unit per 7 grams CHO consumed
--- NOTE | 2024-03-25 14:28 | Hospitalist Progress Note ---
Date of Service March 25, 2024 Assessment & Plan (1) Sepsis: (2) Septic phlebitis of upper extremities: (3) DM type 2 (diabetes mellitus, type 2): (4) HTN (hypertension): (5) Morbid obesity: (6) History of cholecystectomy: Plan 58-year-old male with past medical history significant for diabetes mellitus, type II, hypertension, who was recently admitted for scrotal cellulitis, currently on Bactrim, presents to the hospital with fever, severe chills, # Sepsis most likely secondary to right upper extremity septic phlebitis, after peripheral IV placement versus incompletely treated scrotal cellulitis, recent admission for scrotal cellulitis Blood cultures negative for 24 hours. Will complete a 48-hour observation. IV antibiotics initiated Infectious disease consulted. Continue IV daptomycin and ceftriaxone Upon discharge, and if blood cultures negative, can be switched to p.o. linezolid and cefpodoxime till 04/05 # Scrotal cellulitis, CT abdomen pelvis does not show severe inflammation, on the physical exam no significant inflammation Started on IV daptomycin and ceftriaxone to be switched over to p.o. linezolid and cefpodoxime per ID recommendations Acute DVT of upper extremity related to recent catheter Catheter has been removed Acute DVT involving brachial veins Superficial thrombophlebitis seen as well Treat with warm compress, right upper extremity elevation, pain management for superficial thrombophlebitis Switched from heparin drip to subcu Lovenox therapeutic dose Plan to discharge patient on subcu Lovenox. Will give him a 2-week supply. He will follow-up with his PCP within a week and his PCP can decide on duration and choice of anticoagulation No DVT in lower extremities # Diabetes mellitus type 2 Continue home insulins, he is on Lantus and NovoLog Accu-Cheks AC nightly Insulin sliding scale # Hypertension Blood pressure is elevated, continue ramipril and amlodipine Monitor blood pressure # Morbid obesity Weight loss, patient was not able to tolerate Ozempic # DVT prophylaxis Subcu Lovenox full dose Likely discharge tomorrow Admission and Anticipated Discharge Date Admission Date: March 23, 2024 Subjective Patient feels well today. Denies chest pain or shortness of breath. No pain in the scrotum. Right forearm is pain-free. Review of Systems Review of Systems: All systems reviewed & are unremarkable except as noted in Subjective Physical Exam Physical Exam: General: Awake, conversant. Morbidly obese Heart: S1, S2/regular rate and rhythm, no murmur rubs or gallops Lungs: Clear to auscultation bilaterally. Normal effort Abdomen: Soft/nontender/nondistended. No hepatosplenomegaly Extremities: No clubbing/cyanosis. No edema. Right forearm swelling and redness have improved. Behavior: Appropriate, cooperative Results & Data Results & Data Vital Signs (Past 12 Hours) Vital Signs Temp Pulse Resp BP Pulse Ox O2 Del Method 03/25/24 07:46 36.8 C 83 20 124/80 91 Room Air 03/25/24 07:15 Room Air Laboratory Results Abnormal lab results 03/24/24 03/24/24 03/25/24 Range/Units 16:31 20:34 07:26 Glucose 206 H (70-99(Fasting)) mg/dl POC Glucose 190 H 187 H (70-99) mg/dl 03/25/24 03/25/24 Range/Units 07:48 11:35 Glucose (70-99(Fasting)) mg/dl POC Glucose 215 H 212 H (70-99) mg/dl PG Care Time/CCT Total # of Minutes Spent Total Time Spent with Patient: Total time spent is greater than 50% in coordination of care (as documented) at patient's floor/unit and/or counseling patient: Coding Level of Care Code 24304 SUB INP/OBS CARE 2/35MIN Diagnoses Sepsis A41.9 Sepsis acute organ dysfunction status: without acute organ dysfunction Sepsis type: sepsis due to unspecified organism Septic phlebitis of upper extremities I80.8 DM type 2 (diabetes mellitus, type 2) E11.9 HTN (hypertension) I10 Morbid obesity E66.01 History of cholecystectomy Z90.49 (1) Sepsis Sepsis acute organ dysfunction status: without acute organ dysfunction Sepsis type: sepsis due to unspecified organism Qualified Code(s): A41.9 - Sepsis, unspecified organism
[2024-03-25] MEDS: LANTUS PER UNIT CHARGE SQ SCH (21:27)
[2024-03-26 08:06] LABS: Hematocrit (blood only) 45.5 % (42.0-52.0); Hemoglobin 15.1 g/dl (14.0-18.0); Mean Corpuscular Hemoglobin 28.9 pg (25.0-34.0); Mean Corpuscular Hgb Conc 33.2 g/dL (32.0-36.0); Mean Platelet Volume 11.2 fL (9.4-12.4); Platelet Count 215 K/uL (130-400); Red Blood Count 5.23 M/uL (4.70-6.10); White Blood Count 6.11 K/ul (4.8-10.8)
[2024-03-26 08:25] LABS: BUN Creatinine Ratio 15.5 (10-20); Calcium 9.1 mg/dl (8.6-10.3); Creatinine Clr Calc Pharmacy 144.4 ml/min; Est GFR (African American) 111.9 ml/min; Est GFR (Non-African American) 96.5 ml/min; Potassium 4.1 mmol/L (3.5-5.1)
[2024-03-26 08:27] LABS: ANTI-Xa, UFH(UnfractionatedHep 0.49 IU/ml (0.3-0.7)
--- NOTE | 2024-03-26 08:56 | Discharge Summary ---
Date of Service March 26, 2024 Admission HPI Per Admitting Provider Six 58-year-old male with past medical history significant for diabetes mellitus type 2, morbid obesity, hypertension, who was recently treated in [facility] [place] for scrotal cellulitis, no procedure done, discharged on Bactrim , was feeling well yesterday, this morning he had some chills, but decided to drive to [place] to visit his daughter. On the way to [place] patient started having fever chills, in the car his temp was up to 102, he took ibuprofen, he took his Bactrim yesterday and this morning. He decided to stop by in the emergency room for further evaluation. She is scrotal cellulitis is doing better, he does have a right upper extremity erythema and induration probably from peripheral IV inserted in the hospital. Patient was started on IV Zosyn, denies cough or chest pain, no shortness of breath, no abdominal pain, no nausea no vomiting, no diarrhea , no significant scrotal pain, no legs pain. Surgical history significant for cholecystectomy. Admission Exam Per Admitting Provider Head atraumatic normocephalic neck supple, no JVD chest clear to auscultation bilaterally heart S1-S2 regular, no murmurs gallops or rubs appreciated Abdomen soft, nontender, nondistended, bowel sounds present extremities right upper extremity antecubital fossa erythema present, induration present Lower extremities no edema, pulses present Neurologically alert awake oriented x 3, no focal neurological deficit present Principal Diagnosis Sepsis due to right upper extremity superficial thrombophlebitis (likely) versus incompletely treated scrotal cellulitis Acute DVT of right brachial veins, related to recent catheter Insulin-dependent diabetes mellitus type 2 Morbid obesity Benign essential hypertension Discharge Exam General: Awake, conversant. Morbidly obese Heart: S1, S2/regular rate and rhythm, no murmur rubs or gallops Lungs: Clear to auscultation bilaterally. Normal effort Abdomen: Soft/nontender/nondistended. No hepatosplenomegaly Extremities: No clubbing/cyanosis. No edema. Right forearm swelling and redness have resolved Behavior: Appropriate, cooperative Discharge Data Allergies Allergy/AdvReac Type Severity Reaction Status Date / Time amoxicillin [From Augmentin] AdvReac Intermediate Vomiting Verified 03/23/24 16:50 clavulanic acid AdvReac Intermediate Vomiting Verified 03/23/24 16:50 [From Augmentin] Consultations 03/23/24 17:44 ED Decision to Admit Stat 03/23/24 20:54 Consult Infectious Diseases Routine Ordered Studies 03/23/24 14:48 CT abd pelvis IV con only Stat 03/24/24 US venous doppler UE RT Stat 03/24/24 08:09 US venous duplex leg [US venous doppler LE BI] Stat Hospital Course (1) Sepsis: (2) Septic phlebitis of upper extremities: (3) DM type 2 (diabetes mellitus, type 2): (4) HTN (hypertension): (5) Morbid obesity: (6) History of cholecystectomy: Plan 58-year-old male with past medical history significant for diabetes mellitus, type II, hypertension, who was recently admitted for scrotal cellulitis, currently on Bactrim, presents to the hospital with fever, severe chills, # Sepsis most likely secondary to right upper extremity septic phlebitis, after peripheral IV placement versus incompletely treated scrotal cellulitis, recent admission for scrotal cellulitis Blood cultures negative for 48 hours IV antibiotics initiated Infectious disease consulted. On IV daptomycin and ceftriaxone Per ID recommendation, will discharge on p.o. linezolid and cefpodoxime till 04/05 # Scrotal cellulitis, CT abdomen pelvis does not show severe inflammation, on the physical exam no significant inflammation Started on IV daptomycin and ceftriaxone to be switched over to p.o. linezolid and cefpodoxime upon discharge per ID recommendations Acute DVT of upper extremity related to recent catheter Catheter has been removed Acute DVT involving brachial veins Superficial thrombophlebitis seen as well. Signs of inflammation resolved Switched from heparin drip to subcu Lovenox therapeutic dose Plan to discharge patient on subcu Lovenox. Will give him a 2-week supply. He will follow-up with his PCP within a week and his PCP can decide on duration and choice of anticoagulation No DVT in lower extremities # Diabetes mellitus type 2 Continue home insulins, he is on Lantus and NovoLog Accu-Cheks AC nightly Insulin sliding scale # Hypertension Blood pressure is elevated, continue ramipril and amlodipine Monitor blood pressure # Morbid obesity Weight loss, patient was not able to tolerate Ozempic Discharge to home today Total Time Total Time Spent Total Time Spent (In Minutes): 35 Discharge Plan Discharge Items Patient Disposition: Home - Self-Care Reason For Visit: SEPSIS Discharge Diagnosis: Sepsis due to right upper extremity superficial thrombophlebitis (likely) versus incompletely treated scrotal cellulitis Acute DVT of right brachial veins, related to recent catheter Insulin-dependent diabetes mellitus type 2 Morbid obesity Benign essential hypertension Activity: Resume your previous activity Non-emergency contact: Primary Care Provider Call non-emergency contact if: you have any medication questions and your symptoms worsen Follow-up/Referrals: PCP,NO [Primary Care Provider] - Diet: Carb Consistent or DM2 and Heart Healthy Addtl Attending Provider Instructions: Advised to follow-up with PCP in 1 week Pending Studies at Discharge: Yes Studies:: PCP to follow-up on final blood culture results Stand-Alone Forms: [facility] Medications and DC Order Prescriptions: New enoxaparin [Lovenox] 150 mg/mL Syringe 150 mg subcut Q12H 14 Days Qty: 28 0RF linezolid 600 mg tablet 600 mg PO BID 10 Days Qty: 20 0RF cefpodoxime 200 mg tablet 400 mg PO BID 10 Days Qty: 40 0RF Rx Instructions: must administer with a meal/food Continued multivitamin Tablet 1 tab PO DAILY amlodipine 5 mg tablet 5 mg PO DAILY garlic 1,000 mg Capsule 1,000 mg PO DAILY ramipril 10 mg capsule 10 mg PO DAILY insulin aspart U-100 [Novolog FlexPen U-100 Insulin] 100 unit/mL (3 mL) insulin pen 10 unit SUBCUT TIDWMEAL Rx Instructions: TAKES 10 UNITS PLUS SLIDING SCALE AT NEEDED insulin glargine [Lantus Solostar U-100 Insulin] 100 unit/mL (3 mL) insulin pen 30 unit SUBCUT QPM alpha lipoic acid 100 mg Capsule 0 mg PO DAILY Rx Instructions: PT UNSURE OF STRENGTH, UNABLE TO VERIFY inulin-sorbitol 2 gram Tablet,Chewable 2 tab PO TIDM Cinnulane(Cinnamon) 1 dose PO DAILY Discontinued sulfamethoxazole-trimethoprim 800-160 mg tablet 1 tab PO BID Rx Instructions: STARTED 03/22/24 FOR 14 DAYS Discharge Orders: Discharge Order (Routine); Ordered 03/26/24 Ordered By: Rose Ridley/Other Patient Handouts: High Blood Sugar (Hyperglycemia), Managing Type 2 Diabetes Admission Data Admit Date/Time: 03/23/24 18:35 Attending Provider: Rose Rutledge Admit Provider: Marta Rodriges Primary Care Provider: PCP,NO Other Providers: Marta Rodriges; Zaynab Jones; Lelo Beltran; Kristin Roque; Corinna Leblanc; Karla Goodrich; Kady Luciano Other Interventions: Discharge Summary Assessment (RN) Last Done: 03/26/24 09:25
[2024-03-26] MEDS ORDERED: LANTUS PER UNIT CHARGE SQ SCH (21:00)
== END 2024-03-26 10:00 | disposition home or self-care (01) | DRG 872 ==
LOC: ED 13:54 → 3W 18:35 → INTOOBSV 18:35 → SUATTDRO 18:35 → 3W 20:18